=== PATIENT | female | born 2000 | race Two or more races ===

== ENCOUNTER 2020-05-18 14:07 | Emergency (ER) | payer BC ==
[~2020-05-18] VITALS: Ht 157.5 cm; Wt 61.8 kg
[2020-05-18] MEDS ORDERED: IV NORMAL SALINE 1000ML BAG 1,000 ML IV SCH (14:15)
--- NOTE | 2020-05-18 14:31 | PHYS DOC ---
General Adult EDM: Chief Complaint: ABDOMINAL PAIN HPI: HPI: Patient is a 20 year old female who presents with right sided lower abdominal pain that radiates to her back. She states that the pain is constant but at times he gets more tolerable and then it is worse again. She states it is a stabbing type pain. She states that she does have some burning with urination. She states that this all started last night. She states she does feel slightly nauseated but has not vomited. She denies any past medical history or surgeries. She takes no medications daily. She states that she did not take any pain medicine before coming. She rates her pain 7 out of 10 at this time. Patient denies chest pain, shortness of air, fever, vomiting, diarrhea, constipation, dizziness, headache, vision changes, numbness or tingling. (ALEXEI MATHEWS APRN) Review of Systems: Review of Systems: Constitutional: Denies fever or chills. [] Eyes: Denies change in visual acuity. [] HENT: Denies nasal congestion or sore throat. [] Respiratory: Denies cough or shortness of breath. [] Cardiovascular: Denies chest pain or edema. [] GI: + RLQ abdominal pain, +nausea, denies vomiting, bloody stools or diarrhea. [] : Denies dysuria. [] Musculoskeletal: + Right back pain or denies joint pain. [] Integument: Denies rash. [] Neurologic: Denies headache, focal weakness or sensory changes. [] Endocrine: Denies polyuria or polydipsia. [] Lymphatic: Denies swollen glands. [] Psychiatric: Denies depression or anxiety. [] (ALEXEI MATHEWS RN LABOR DELIVERY) Heart Score: Risk Factors: Risk Factors: DM, Current or recent (<one month) smoker, HTN, HLP, family history of CAD, obesity. Risk Scores: Score 0 - 3: 2.5% MACE over next 6 weeks - Discharge Home Score 4 - 6: 20.3% MACE over next 6 weeks - Admit for Clinical Observation Score 7 - 10: 72.7% MACE over next 6 weeks - Early Invasive Strategies (ALEXEI MATHEWS APRN) Current Medications: Current Medications Medications (Trade) Dose Ordered Sig/Glenn Start Time Stop Time Status Last Admin Dose Admin Sodium Chloride 1,000 ml @ 1,000 mls/hr Q1H 05/18/20 14:15 05/18/20 15:14 UNV (ALEXEI MATHEWS APRN) Physical Exam: PE: Constitutional: Well developed, well nourished, no acute distress, non-toxic appearance. [] HENT: Normocephalic, atraumatic, bilateral external ears normal, oropharynx moist, no oral exudates, nose normal. [] Eyes: PERRLA, EOMI, conjunctiva normal, no discharge. [] Neck: Normal range of motion, no tenderness, supple, no stridor. [] Cardiovascular:Heart rate regular rhythm, no murmur [] Lungs & Thorax: Bilateral breath sounds clear to auscultation [] Abdomen: Bowel sounds normal, soft, RLQ pressure tenderness, no masses, no pulsatile masses. [] Skin: Warm, dry, no erythema, no rash. [] Back: No tenderness, no CVA tenderness. [] Extremities: No tenderness, no cyanosis, no clubbing, ROM intact, no edema. [] Neurologic: Alert and oriented X 3, normal motor function, normal sensory function, no focal deficits noted. [] Psychologic: Affect normal, judgement normal, mood normal. [] (ALEXEI MATHEWS APRN) EKG: EKG: [] (ALEXEI MATHEWS APRN) Radiology/Procedures: Radiology/Procedures: [] Impression: [facility] [address] [place], [place] [id number] IMAGING REPORT Signed PATIENT: ALDEN MCBRIDEACCOUNT: [id number] : 2000 LOCATION: ER AGE: 20 SEX: F EXAM STATUS: PRE ER ORD. PHYSICIAN: ALEXEI MATHEWS APRN REASON: RLQ PAIN THAT RADIATES TO BACK PROCEDURE: CT ABDOMEN PELVIS WO CONTRAST Exam: CT abdomen and pelvis without contrast INDICATION: Right lower quadrant pain that radiates to the back TECHNIQUE: Sequential axial images through the abdomen and pelvis obtained without IV contrast. Sagittal and coronal reformatted images were reconstructed from the axial data and reviewed. Comparisons: None FINDINGS: Heart size is normal. No pericardial visualized lung bases are clear. No pleural effusion. Evaluation of solid organs is limited secondary to noncontrast technique. Liver, spleen, pancreas, gallbladder and adrenals are unremarkable. Perinephric inflammation or hydronephrosis. No renal or ureteral calculi are identified. Bladder is decompressed not well evaluated. Uterus is not enlarged. No abnormal adnexal mass. Large and small bowel are unremarkable. Appendix is normal. No free intra- abdominal air or fluid. No obstruction. Abdominal aorta has a normal course and caliber. No enlarged intra-abdominal lymph nodes are identified. No suspicious osseous lesions or acute fractures. IMPRESSION: No acute process identified within the abdomen or pelvis. Exposure: One or more of the following in the visualized dose reduction techniques were utilized for this examination: 1. Automated exposure control 2. Adjustment of the MA and/or KV according to patient size 3. Use of iterative of reconstructive technique Electronically signed by: Jessica Hernandez MD (05/18/2020 3:10 PM) [facility] DICTATED and SIGNED BY: JESSICA HERNANDEZ MD DATE: 05/18/20 [id number] (ALEXEI MATHEWS APRN) Course & Med Decision Making: Course & Med Decision Making Pertinent Labs and Imaging studies reviewed. (See chart for details) See HPI. Alert and oriented x4. Ambulatory with a steady gait. Vital signs within normal limits. Speaks in full complete sentences. Skin pink warm and dry. Abdomen is soft but tender to the right lower quadrant. She states that is not a tenderness is more like a pressure with palpation. No CVA tenderness. Blood work unremarkable. CT abd pelvis shows no acute findings. Urinalysis looks contaminated. Patient is given strict instructions to return if she begins running a fever or having vomiting. Since she was having some urinary symptoms I will go ahead and give her an antibiotic for a UTI. Patient can take ibuprofen at home for any pain she has. [] (ALEXEI MATHEWS APRN) [place] Disclaimer: [place]ar Disclaimer: This electronic medical record was generated, in whole or in part, using a voice recognition dictation system. (ALEXEI MATHEWS APRN) Departure Departure Impression: Primary Impression: Nonspecific abdominal pain Additional Impression: Urinary symptom or sign Disposition: 01 DC HOME SELF CARE/HOMELESS Condition: STABLE Patient Instructions: Abdominal Pain (Nonspecific) Additional Instructions: Follow-up with a primary care provider as much as possible. Drink plenty of fluids. Take ibuprofen for your pain. Return for fever, severe abdominal pain, vomiting or diarrhea. Scripts Ondansetron (ONDANSETRON ODT) 4 Mg Tab.rapdis 1 TAB PO PRN Q6-8HRS, #16 TAB Prov: ALEXEI MATHEWS APRN 05/18/20 Ibuprofen (IBUPROFEN) 600 Mg Tablet 600 MG PO PRN Q6HRS PRN for INFLAMMATION, #24 TAB Prov: ALEXEI MATHEWS APRN 05/18/20 Cephalexin (CEPHALEXIN) 500 Mg Capsule 1 CAP PO BID for 7 Days, #14 CAP Prov: ALEXEI MATHEWS APRN 05/18/20 Attending Signature Attending Signature I have reviewed the PA/SKI TOPPER's note and plan of care. I was available for consultation as needed during the patient's visit in the emergency department. I agree with the clinical impression, plan, and disposition. (EVARISTO CH DO) ALEXEI MATHEWS APRN May 18, 2020 14:31 EVARISTO CH DO May 18, 2020 17:53
[2020-05-18 14:33] LABS: BILIRUBIN,URINE NEGATIVE (NEG); COLOR,URINE YELLOW; NITRITE,URINE NEGATIVE (NEG); PROTEIN,URINE NEGATIVE (NEG-TRACE); UROBILINOGEN,URINE 0.2 mg/dL (0.2 mg/dL)
[2020-05-18 14:35] LABS: BASO % 0 % (0-3); EOS # 0.1 x10^3/uL (0.0-0.7); EOS % 1 % (0-3); HEMATOCRIT 40.9 % (36.0-47.0); HEMOGLOBIN 13.8 g/dL (12.0-15.5); LYMPH # 3.3 x10^3/uL (1.0-4.8); LYMPH % 40 % (24-48); MEAN CORPUSCULAR HEMOGLOBIN 30 pg (25-35); MEAN CORPUSCULAR HGB CONC 34 g/dL (31-37); MEAN CORPUSCULAR VOLUME 90 fL (79-100); MONO # 0.6 x10^3/uL (0.0-1.1); MONO % 7 % (0-9); NEUT # 4.4 x10^3/uL (1.8-7.7); NEUT % 52 % (31-73); PLATELET COUNT 262 x10^3/uL (140-400); RED BLOOD COUNT 4.57 x10^6/uL (3.50-5.40); RED CELL DISTRIBUTION WIDTH 12.3 % (11.5-14.5); WHITE BLOOD COUNT 8.4 x10^3/uL (4.0-11.0)
[2020-05-18 14:39] LABS: BARBITURATES NEG (NEG); BENZODIAZEPINES NEG (NEG); CANNABINOIDS POS (NEG); COCAINE NEG (NEG); METHADONE NEG (NEG); OPIATES NEG (NEG); PHENCYCLIDINE NEG (NEG)
[2020-05-18 14:44] LABS: CALCIUM 9.4 mg/dL (8.5-10.1); CREATININE 0.9 mg/dL (0.6-1.0); POTASSIUM 3.8 mmol/L (3.5-5.1)
[2020-05-18] MEDS ORDERED: fentaNYL PF VIAL 100 MCG/2 ML VIAL IVP ONE (14:45)
[2020-05-18] MEDS ORDERED: ONDANSETRON PF 4 MG/2 ML VIAL. IVP ONE (14:45)
[2020-05-18 14:49] LABS: ALBUMIN 4.1 g/dL (3.4-5.0); ALBUMIN/GLOBULIN RATIO 1.1 (1.0-1.7); TOTAL BILIRUBIN 0.5 mg/dL (0.2-1.0)
[2020-05-18 14:50] LABS: CLARITY,URINE CLEAR
[2020-05-18 14:51] LABS: BACTERIA,URINE MODERATE /HPF (0-FEW)
[2020-05-18 14:52] LABS: RBC,URINE RARE /HPF (0-2); WBC,URINE 0 /HPF (0-4)
[2020-05-18 14:57] VITALS: BP_DIAS 68
[2020-05-18 14:58] LABS: AMPHETAMINE/METHAMPHETAMINE NEG (NEG)
--- NOTE | 2020-05-18 15:13 | RAD ---
ADDENDUM #1 ADDENDUM: Findings should read as follows: NO perinephric inflammation or hydronephrosis. No renal or ureteral calculi are identified. There is a cystic lesion of the right adnexa which measures approximately 2.5 cm in long axis favored represent cyst within the right ovary however is included characterized on CT. Ultrasound would bett er evaluate. Electronically signed by: Jessica Kelly MD (05/18/2020 3:25 PM) PAULINAJESSICA ORIGINAL REPORT Exam: CT abdomen and pelvis without contrast INDICATION: Right lower quadrant pain that radiates to the back TECHNIQUE: Sequential axial images through the abdomen and pelvis obtained without IV contrast. Sagit chandu and coronal reformatted images were reconstructed from the axial data and reviewed. Comparisons: None FINDINGS: Heart size is normal. No pericardial visualized lung bases are clear. No pleural effusion. Evaluation of solid organs is limited secondary to noncontrast technique. Liver, spleen, pancreas, gallbladder and adrenals are unremarkable. Perinephric inflammation or hydronephrosis. No renal or ureteral calculi are identified. Bladder is decompressed not well evaluated. Uterus is not enlarged. No abnormal adnexal mass. Large and small bowel are unremarkable. Appendix is normal. No free intra-abdominal air or fluid. No obstruction. Abdominal aorta has a normal course and caliber. No enlarged intra-abdominal lymph nodes are identified. No suspicious osseous lesions or acute fractures. IMPRESSION: No acute process identified within the abdomen or pelvis. Exposure: One or more of the following in the visualized dose reduction techniques were utilized for this examination: 1. Automated exposure control 2. Adjustment of the MA and/or KV according to patient size 3. Use of iterative of reconstructive technique Electronically signed by: Jessica Kelly MD (05/18/2020 3:10 PM) MEERA
[2020-05-18] MEDS ORDERED: IBUP-1007 PO (15:23)
[2020-05-18] MEDS ORDERED: ONDA4TAB12 PO (15:23)
[2020-05-18] MEDS ORDERED: CEPH500C PO (15:23)
[2020-05-18 15:30] VITALS: BP_SYST 105
== END 2020-05-18 15:57 | disposition home or self-care (01) ==
LOC: ER 14:07
DX: R10.31 Right lower quadrant pain (principal); R30.0 Dysuria; R11.0 Nausea
CPT/HCPCS: 36415; 74176; 80053; 80307; 81001; 81025; 83690; 85025; 87086; 96361; 96374; 96375; 99284; J2405; J3010; J7030

== ENCOUNTER 2020-07-12 22:11 | Emergency (ER) | payer BC ==
[~2020-07-12] VITALS: Ht 157.5 cm; Wt 61.8 kg
[~2020-07-12 22:11] MED LIST: CEPH500C PO; IBUP-1007 PO; ONDA4TAB12 PO
--- NOTE | 2020-07-12 23:43 | RAD ---
US OB 14+ WKS Clinical Indication: Reason: vaginal bleeding, / Spl. Instructions: / History: Comparison: None. TECHNIQUE: Real-time ultrasound imaging of the pelvis using transabdominal window is performed. Findings: Cervix length is approximately 3.5 cm. The uterus measures 8.3 x 7.7 x 6.5 cm. There is an intrauterine gestational sac. No perigestational hemorrhage is seen. A yolk sac and pole are identified. [place]-rump length 4.2 cm, 11 weeks and 1 day. Ultrasound EDC January 30, 2021. Estimated heart rate is 157 bpm. The maternal ovaries are not identified in the adnexa probably due to overlying bowel gas. No adnexal mass is seen. No pelvic free fluid is identified. IMPRESSION: Single live intrauterine gestation, estimated sonographic gestational age 11 weeks and 1 day. Electronically signed by: Cesar Grayson MD (07/12/2020 11:41 PM) NILESH
--- NOTE | 2020-07-12 23:48 | ED.ADGEN ---
Past Medical History Past Medical History: No Pertinent History Past Surgical History: No Surgical History Smoking Status: Never Smoker Alcohol Use: Occasionally General Adult EDM: Chief Complaint: ABDOMINAL PAIN HPI: HPI: Patient is a 20-year-old female who presents to the emergency room complaining of lower abdominal cramping worse on the left pelvic area that started earlier today. She states she has been having intermittent lower abdominal pain for the last week with some intermittent nausea and vomiting. She thought that there is a chance she may be . Her last menstrual cycle was in April. She s tates that the cramping became severe this evening so she wanted to get checked out to ensure everything was okay. She is been eating and drinking as normal. She denies any vaginal bleeding or vaginal discharge. She denies any urinary symptoms. She has never been previously. Review of Systems: Review of Systems: Complete ROS is negative unless otherwise documented in HPI Allergies: Allergies: Allergies Coded Allergies Type Severity Reaction Last Updated Verified No Known Drug Allergies 05/18/20 No Physical Exam: PE: General: Awake, alert, NAD. Well Nourished, well hydrated. Cooperative HEENT: Atraumatic, EOMI, PERRL, airway patent, moist oral mucosa Neck: Supple, trachea midline Respiratory: CTA bilaterally, normal effort, no wheezing/crackles CV: RRR, no murmur, cap refill <2 GI: Soft, nondistended, nontender, no masses MSK: No obvious deformities Skin: Warm, dry, intact Neuro: A&O x3, speech NL, sensory and motor grossly intact, no focal deficits Psych: Normal affect, normal mood, not suicidal or homicidal Current Patient Data: Labs: Laboratory Tests Test 07/12/20 22:20 07/12/20 22:26 07/13/20 00:35 Urine Collection Type Unknown Urine Color Yellow Urine Clarity Clear Urine pH 6.5 (<5.0-8.0) Urine Specific [place] 1.025 (1.000-1.030) Urine Protein Negative mg/dL (NEG-TRACE) Urine Glucose (UA) Negative mg/dL (NEG) Urine Ketones (Stick) Negative mg/dL (NEG) Urine Blood Negative (NEG) Urine Nitrite Negative (NEG) Urine Bilirubin Negative (NEG) Urine Urobilinogen Dipstick 1.0 mg/dL (0.2 mg/dL) Urine Leukocyte Esterase Negative (NEG) Urine RBC 0 /HPF (0-2) Urine WBC 1-4 /HPF (0-4) Urine Squamous Epithelial Cells Many /LPF Urine Amorphous Sediment Present /HPF Urine Bacteria Few /HPF (0-FEW) Urine Mucus Marked /LPF POC Urine HCG, Qualitative Hcg positive (Negative) White Blood Count 9.3 x10^3/uL (4.0-11.0) Red Blood Count 3.59 x10^6/uL (3.50-5.40) Hemoglobin 10.9 g/dL (12.0-15.5) L Hematocrit 31.9 % (36.0-47.0) L Mean Corpuscular Volume 89 fL (79-100) Mean Corpuscular Hemoglobin 30 pg (25-35) Mean Corpuscular Hemoglobin Concent 34 g/dL (31-37) Red Cell Distribution Width 12.7 % (11.5-14.5) Platelet Count 239 x10^3/uL (140-400) Neutrophils (%) (Auto) 57 % (31-73) Lymphocytes (%) (Auto) 36 % (24-48) Monocytes (%) (Auto) 7 % (0-9) Eosinophils (%) (Auto) 1 % (0-3) Basophils (%) (Auto) 0 % (0-3) Neutrophils # (Auto) 5.2 x10^3/uL (1.8-7.7) Lymphocytes # (Auto) 3.3 x10^3/uL (1.0-4.8) Monocytes # (Auto) 0.6 x10^3/uL (0.0-1.1) Eosinophils # (Auto) 0.1 x10^3/uL (0.0-0.7) Basophils # (Auto) 0.0 x10^3/uL (0.0-0.2) Laboratory Tests 07/13/20 00:35 Vital Signs: Vital Signs Date Time Temp Pulse Resp B/P (MAP) Pulse Ox O2 Delivery O2 Flow Rate FiO2 07/12/20 23:53 72 20 98/54 (69) 97 Room Air 07/12/20 22:15 98.7 98.7 EKG: EKG: [] Heart Score: C/O Chest Pain: N/A Risk Factors: Risk Factors: DM, Current or recent (<one month) smoker, HTN, HLP, family history of CAD, obesity. Risk Scores: Score 0 - 3: 2.5% MACE over next 6 weeks - Discharge Home Score 4 - 6: 20.3% MACE over next 6 weeks - Admit for Clinical Observation Score 7 - 10: 72.7% MACE over next 6 weeks - Early Invasive Strategies Radiology/Procedures: Radiology/Procedures: [] Course & Med Decision Making: Course & Med Decision Making Pertinent Labs and Imaging studies reviewed. (See chart for details) Patient is a 20 year-old G 1 P 0 who presents to the Emergency Room with pelvic cramping. Patient has not seen passage of tissue. She has not had a formal ultrasound and does not have a confirmed IUP. UA, Rh type, OB ultrasound, test were ordered. At this time, ultrasound shows IUP. Patient does not need rhogam. I have discussed with the patient that they are likely have a threatened . We have discussed early on in we are unable to prevent miscarriages. We will discussed pelvic rest until she follows up with OBGYN. She will return to the Emergency Room if she has a large amount of bleeding, syncope, SOB. Patient's test results and vitals while in the ED were fully reviewed and discussed with the patient. Patient is stable and at this time does not need admission to the hospital. We have discussed strict return precautions and the importance of following up with their Primary Care Physician. Patient stated understanding and was given an opportunity to ask any questions. [place] Disclaimer: [place] Disclaimer: This electronic medical record was generated, in whole or in part, using a voice recognition dictation system. Departure Departure Impression: Primary Impression: Abdominal pain affecting Disposition: DC HOME SELF CARE/HOMELESS Condition: STABLE Referrals: NO PCP (PCP) Patient Instructions: ABCs of , Abdominal Pain During Scripts Pnv No.122/Iron/Folic Acid ( Multi Tablet) 1 Each Tablet 1 TAB PO DAILY for 30 Days, #30 TAB 0 Refills Prov: BARB PRINGLE MD 07/13/20 BARB PRINGLE MD Jul 12, 2020 23:48
[2020-07-13 00:08] LABS: BILIRUBIN,URINE NEGATIVE (NEG); CLARITY,URINE CLEAR; COLOR,URINE YELLOW; NITRITE,URINE NEGATIVE (NEG); PH,URINE 6.5 (<5.0-8.0); PROTEIN,URINE NEGATIVE (NEG-TRACE)
[2020-07-13 00:25] LABS: AMORPHOUS SEDIMENT,UR PRESENT /HPF; BACTERIA,URINE FEW /HPF (0-FEW); RBC,URINE 0 /HPF (0-2)
[2020-07-13 00:48] LABS: BASO % 0 % (0-3); EOS # 0.1 x10^3/uL (0.0-0.7); EOS % 1 % (0-3); HEMATOCRIT 31.9 % (36.0-47.0); HEMOGLOBIN 10.9 g/dL (12.0-15.5); LYMPH # 3.3 x10^3/uL (1.0-4.8); LYMPH % 36 % (24-48); MEAN CORPUSCULAR HEMOGLOBIN 30 pg (25-35); MEAN CORPUSCULAR HGB CONC 34 g/dL (31-37); MEAN CORPUSCULAR VOLUME 89 fL (79-100); MONO # 0.6 x10^3/uL (0.0-1.1); MONO % 7 % (0-9); NEUT # 5.2 x10^3/uL (1.8-7.7); NEUT % 57 % (31-73); PLATELET COUNT 239 x10^3/uL (140-400); RED BLOOD COUNT 3.59 x10^6/uL (3.50-5.40); RED CELL DISTRIBUTION WIDTH 12.7 % (11.5-14.5); WHITE BLOOD COUNT 9.3 x10^3/uL (4.0-11.0)
[2020-07-13 00:53] VITALS: BP 102/54
[2020-07-13] MEDS ORDERED: PNV1TABL78 PO (01:03)
== END 2020-07-13 01:17 | disposition home or self-care (01) ==
LOC: ER 22:11
DX: O26.891 Other specified pregnancy related conditions, first trimester (principal); R10.30 Lower abdominal pain, unspecified; R11.2 Nausea with vomiting, unspecified; Z3A.01 Less than 8 weeks gestation of pregnancy
CPT/HCPCS: 36415; 76801; 81001; 81025; 85025; 86901; 99285-25